=== PATIENT | female | born 1995 ===

== ENCOUNTER 2017-05-18 18:53 | Emergency (ER) | payer OTHER ==
[~2017-05-18] VITALS: Ht 167.6 cm; Wt 72.7 kg
[2017-05-18 19:14] VITALS: BP 96/57; PULSE 85; RESP 16; O2SAT 98
--- NOTE | 2017-05-18 19:59 | ED.REPORT ---
HPI-General Illness Date of Service May 18, 2017 ED Provider: Paul Tee MD Patient is a 22 year old female who is approx. 12 weeks with a hx of GERD and anxiety who presents to the ED complaining of NV onset 4 days ago. She has not been able to keep down solids or liquids. Associated symptoms include mild abdominal cramping and decreased intake. She denies diarrhea, hematochezia , vaginal bleeding or discharge, or any other symptoms. She is trying to obtain a referral for OB. Her last period was February 26. Nursing Notes Stated Complaint: 12 WEEKS /3 DAYS OF NAUSEA/VOMITING Chief Complaint: Female Abdominal Pain Nursing Notes Reviewed: Yes Allergies: Coded Allergies: No Known Allergies (Unverified , 05/18/17) Scheduled PRN Metoclopramide (Metoclopramide) 10 Mg Tablet 10 MG PO QID PRN PRN For Nausea General Time Seen by MD: 19:58 Chief Complaint Vomiting Hx Obtained From: Patient Arrived By: Walk-in Sudden in Onset?: Yes Onset Occurred: 4 days ago Symptom Duration: Since onset Similar Sx Previous: Yes Past Medical History Past Medical History Anxiety Reports: GERD Past Surgical History D&C Leg surgery Smoking History Unknown if Ever Smoker Ambulatory Status Independent Review of Systems +decreased intake Full Review of Systems GI: Reports: Abdominal pain, Nausea, Vomiting, Denies: Diarrhea, Hematochezia Female: Denies: Vaginal bleeding - abnl, Vaginal discharge Complete sys rev & neg: except as marked. Physical Exam Vital Signs Vital Signs Date Time Temp Pulse Resp B/P Pulse Ox O2 Delivery O2 Flow Rate FiO2 05/18/17 21:53 36.1 76 20 110/63 97 Room Air 05/18/17 19:14 36.9 85 16 96/57 98 Room Air Initial VS: Reviewed, Vital signs abnormal General/Constitutional: Awake, Alert, Well appearing, Well developed, Well nourished Not diaphoretic. Head / Eyes: Atraumatic, Normocephalic EOM are normal. Pupils are equal, round, and reactive to light. ENT: Airway patent, Pharynx NL Mucousa slightly dry. Neck: Supple no tracheal deviation. Respiratory / Chest: No respiratory distress Effort normal and breath sounds normal Cardiovascular: Heart rate NL, Regular rhythm, Heart sounds NL, Peripheral circulation NL, Pulses = bilaterally Abdomen: Soft, Non-tender, No guarding, No rebound Upper Extremities Upper Extremity / MS: Inspection NL Range of motion grossly intact, moving all extremities. No edema or tenderness appreciated. Lower Extremity / Pelvis / MS: Inspection NL Range of motion grossly intact, moving all extremities. No edema or tenderness appreciated. Skin: Warm, Dry Rash / Lesion Notes: no rashes or pallor appreciated Neurologic: Oriented X3, Speech NL Grossly nonfocal exam. Strength and sensation intact and equal to bilateral upper and lower extremities Psychiatric: Affect NL, Mood NL Behavior appears normal. Interpretation & Diagnostics Lab Results Interpretation Result Diagram: 05/18/17 2030 05/18/17 2030 Test 05/18/17 20:25 05/18/17 20:30 Urine Color Dark yellow (YELLOW) Urine Appearance Hazy (CLEAR,HAZY) Urine pH 6.0 (5.0-8.0) Urine Specific [place] 1.025 (1.003-1.035) Urine Protein Tracemg/dL (NEG,TRACE) Urine Glucose (UA) 100mg/dL (NEGATIVE) Urine Ketones 15mg/dL (NEGATIVE) Urine Occult Blood Negative (NEGATIVE) Urine Nitrite Negative (NEGATIVE) Urine Bilirubin Negative (NEGATIVE) Urine Urobilinogen Normalmg/dL (NORMAL) Urine Leukocyte Esterase Trace (NEGATIVE) Urine RBC 0-2/hpf (0-2) Urine WBC 0-5/hpf (0-5) Urine Epithelial Cells Moderate/hpf (NONE-MOD) Urine Crystals None seen (NONE SEEN) Urine Bacteria None/hpf (NONE-FEW) Urine Hyaline Casts None/lpf (NONE) Urine Granular Casts None seen (NONE SEEN) Urine Waxy Casts None seen (NONE SEEN) Urine Red Blood Cell Casts None seen (NONE SEEN) Urine White Blood Cell Casts None seen (NONE SEEN) Urine Mucus Present (None Seen) Urine Trichomonas None seen (NONE SEEN) Urine Yeast None (NONE SEEN) Urinalysis Comment None Urine Culture Reflexed Indicated White Blood Count 8.6th/mm3 (3.8-10.1) Red Blood Count 4.34mil/mm3 (3.90-5.20) Hemoglobin 12.9g/dL (12.0-15.6) Hematocrit 37.4% (35.0-46.0) Mean Corpuscular Volume 86.2fL (81-100) Mean Corpuscular Hemoglobin 29.7pg (27.0-35.0) Mean Corpuscular Hemoglobin Concent 34.5% (32.0-37.0) Red Cell Distribution Width 13.0% (12.3-15.4) Platelet Count 199bil/L (150-400) Neutrophils (%) (Auto) 70.9% (40-74) Lymphocytes (%) (Auto) 22.7% (14-46) Monocytes (%) (Auto) 5.5% (4-12) Eosinophils (%) (Auto) 0.6% (0-5) Basophils (%) (Auto) 0.2% (0-3) Sodium Level 140mEq/L (134-144) Potassium Level 3.7mEq/L (3.5-5.2) Chloride Level 106mEq/L (97-108) Carbon Dioxide Level 20mmol/L (18-29) Blood Urea Nitrogen 7mg/dL (6-20) Creatinine 0.49mg/dL (0.57-1.00) Estimat Glomerular Filtration Rate 231mL/min (>59) Glucose Level 100mg/dL (60-99) Calcium Level 9.2mg/dL (8.5-10.1) Magnesium Level 1.7mg/dL (1.6-2.6) Total Bilirubin 0.2mg/dL (0.0-1.2) Aspartate Amino Transf (AST/SGOT) 15U/L (0-50) Alanine Aminotransferase (ALT/SGPT) 16U/L (0-32) Alkaline Phosphatase 45U/L (25-150) Total Protein 6.5g/dL (6.4-8.4) Albumin 3.6g/dL (3.4-5.0) Lipase 40U/L (13-60) Lab Results Interpretation: urine preg positive US Focused OB viable 11 week small subchorionic hemorrhage Exam Performed by: Allied health pract Exam Interpreted by: Radiologist Re-Eval/Medical Decision Med Decision/Clinical Course 22-year-old female presenting to the ED for evaluation of vomiting in the setting of a presumed approximately 12 week . She has not had any care to date. She has no abdominal pain or tenderness, no vaginal bleeding, no vaginal discharge. Hemodynamically stable here in the emergency department. Given Reglan with some improvement in symptoms. Ultrasound demonstrates a small subchorionic hemorrhage, approximately 11 week gestation. Laboratory studies reviewed, non-actionable at this time. Given her clinical improvement, seems reasonable to discharge home with close obstetric follow-up, careful return precautions. I will give her a prescription for Reglan. Patient agreeable to the plan as stated, no further questions. Time of Eval: 21:10 Re-Evaluation/Progress Note: Rechecked patient. She is feeling better and tolerating PO. Discussed US results and need for close follow up. Discussed plan for discharge. Patient understands and agrees with plan. All questions addressed at this time. Counseled Regarding: Diagnosis, Lab results, Need for follow-up, When/why to return to ED Discharge & Departure Primary Impression: Nausea and vomiting during Additional Impression: Subchorionic hemorrhage Fetus number: single or unspecified fetus Trimester: unspecified trimester Qualified Code: O41.8X90 - Other specified disorders of amniotic fluid and membranes, unspecified trimester, not applicable or unspecified Disposition: Home Discharge Condition All VS Reviewed: Yes Condition: Stable Patient Instructions: Nausea and Vomiting in (ED), Subchorionic Hemorrhage (ED) Additional Instructions: Thank you for entrusting us with your care. Your ultrasound estimates that you are 11 weeks and that you have a small subchorionic hemorrhage. Obtain an OB appointment for close follow up. Drink small, frequent sips of clear fluids. Eat a bland diet and progress as tolerated. Take Reglan as needed for nausea and vomiting. Return to the emergency department if you experience increasing abdominal cramping, vaginal bleeding, or any other new or worsening symptoms. Referrals: [facility]IB[facility]IRO (PCP) [facility] Attestation Portions of this note were transcribed by Jennifer Barnett. I, Dr. Tee personally performed the history, physical exam and medical decision-making; I reviewed and confirmed the accuracy of the information in the transcribed note. Signed by: Jennifer Barnett 05/18/17, [id number] copies to: [facility] ABDIFATAH ZEPEDA; [facility] William B MD May 18, 2017 19:59 JENNIFER BARNETT May 18, 2017 20:16
[2017-05-18] MEDS ORDERED: 0.9% Sodium Chloride 1,000 ML IV ONE (20:17)
[2017-05-18] MEDS ORDERED: MetoCLOpramide 5 mg/mL 2 mL Inj IVPUSH ONE (20:20)
[2017-05-18 20:43] LABS: BASOPHILS % (AUTO) 0.2 % (0-3); EOSINOPHILS % (AUTO) 0.6 % (0-5); MONOCYTES % (AUTO) 5.5 % (4-12); Mean Corpuscular Hemoglobin 29.7 pg (27.0-35.0); Mean Corpuscular Volume 86.2 fL (81-100); NEUTROPHILS % (AUTO) 70.9 % (40-74); Platelet Count 199 bil/L (150-400)
[2017-05-18 21:01] LABS: APPEARANCE,URINE HAZY (CLEAR,HAZY); COLOR,URINE DARK YELLOW (YELLOW)
[2017-05-18 21:02] LABS: OCCULT BLOOD,URINE NEGATIVE (NEGATIVE); UROBILINOGEN,URINE NORMAL (NORMAL)
[2017-05-18 21:04] LABS: Magnesium 1.7 mg/dL (1.6-2.6)
[2017-05-18] MEDS ORDERED: METO10TA3 PO (21:16)
--- NOTE | 2017-05-18 21:25 | DRSVH ---
PROCEDURE: US OB<14 WKS INDICATIONS: w/ vomiting; eval for abnl, ectopic OUTSIDE/PRIOR DATING DATA: Last menstrual period (LMP): 02/26/17. LMP-based estimated date of delivery (JENNIFER): 12/03/17. First dating scan (date and location): 05/18/17. Estimated date of delivery (JENNIFER) from first dating scan: 12/04/17. TECHNIQUE: Real-time scanning was performed of the fetus and maternal pelvic organs, with image documentation. COMPARISON: None. FINDINGS: Embryo: Single live intrauterine with ultrasound gestational age of 11 weeks 3 days corresp onding to a crown-rump length of 45.6 mm. There is a small focus of subchorionic hemorrhage measuring 19 x 7 x 17 mm. Measurement variability in dating: +/- 4 weeks by LMP, +/- 7 days by mean sac diameter (use before 6 weeks gestation if crown-rump length not able to be measured), +/- 5 days by crown-rump length (up t o 8 weeks 6 days gestation), +/- 7 days by crown-rump length (up to 13 weeks 6 days gestation). Maternal organs: Ovaries are unremarkable. Limited images through the kidneys demonstrate no hydron ephrosis. IMPRESSION: 1. Single intrauterine with ultrasound gestational age of 11 weeks 3 days corresponding to ultrasound JENNIFER 12/04/17. 2. Small focus of subchorionic hemorrhage is noted. Dictated by: Monica Ortiz M.D. on 05/18/2017 at 21:22 Approved by: Monica Ortiz M.D. on 05/18/2017 at 21:23
[2017-05-18 21:53] VITALS: BP 110/63; PULSE 76; RESP 20; O2SAT 97
== END 2017-05-18 21:55 | disposition home or self-care (01) ==
LOC: SED 18:53
DX: O21.0 Mild hyperemesis gravidarum (principal); O46.8X1 Other antepartum hemorrhage, first trimester; Z3A.12 12 weeks gestation of pregnancy; K21.9 Gastro-esophageal reflux disease without esophagitis
CPT/HCPCS: 36415; 76801; 80053; 81000; 81025; 83690; 83735; 85025; 87086; 87088; 96361; 96374; 99285; J2765; J7030